=== PATIENT | male | born 1995 | race Caucasian/White ===

== ENCOUNTER 2021-01-25 10:21 | Outpatient (CLI) | payer MEDICAID ==
[2021-01-27 20:02] LABS: ANA SCREEN NEGATIVE (NEGATIVE)
== END 2021-01-25 10:22 | disposition home or self-care (01) ==
LOC: LAB 10:21
PROVIDERS: ATTEND Ophthalmology
DX: H20.00 Unspecified acute and subacute iridocyclitis (principal)
CPT/HCPCS: 36415; 81599; 82164; 83520; 85549; 86038; 86592; 86780; 86812

== ENCOUNTER 2022-05-03 19:17 | Emergency (ER) | payer MEDICAID ==
[2022-05-03 19:25] VITALS: BP 128/73
[2022-05-03] MEDS ORDERED: AMOX/CLAV 875 MG/125 MG TABLET PO STA (19:40)
[2022-05-03] MEDS ORDERED: TETANUS/DIPHTHERIA/PERTUSSIS 0.5 ML SYRINGE IM ONE (19:40)
--- NOTE | 2022-05-03 19:42 | ED Physician Documentation ---
PD HPI LOWER EXT INJURY - Stated complaint Stated Complaint: R THUMB LAC - Chief complaint Chief Complaint: Laceration - History obtained from History obtained from: Patient - Additional information Additional information: Right-handed gentleman was breaking up a fight between his 2 dogs and got bitten to the right thumb, an isolated injury. Tetanus status is unknown. Review of Systems Constitutional: reports: Reviewed and negative Nose: reports: Reviewed and negative Cardiac: reports: Reviewed and negative Respiratory: reports: Reviewed and negative PD PAST MEDICAL HISTORY - Present Medications Home Medications: Ambulatory Orders Medication Instructions Recorded Confirmed Amox/Clav 875/125 [Augmentin] 1 each PO Q12H #10 tablet 05/03/22 - Allergies Allergies/Adverse Reactions: Allergies Allergy/AdvReac Type Severity Reaction Status Date / Time No Known Drug Allergies Allergy Verified 05/03/22 19:25 PD ED PE NORMAL - Vitals Vital signs reviewed: Yes - General General: Alert and oriented X 3, No acute distress - Extremities Extremities: Other (He has 3 puncture wounds on the right thumb, one dorsally at the level of the interphalangeal joint on the ulnar side, 1 on the underside of the IP joints and 1 more on the tip of the tuft. No palpable foreign body. Flexion and extension strength the tip is normal. Mild tenderness around the IP j) - Neuro Neuro: Alert and oriented X 3, Normal speech Results - Vitals Vitals: Vital Signs - 24 hr 05/03/22 19:24 Temperature 36.4 C L Heart Rate 56 L Respiratory 16 Rate Blood Pressure 128/73 O2 Saturation 100 Oxygen O2 Source Room air - Rads (name of study) Three-view x-ray of the right thumb is without bony injury Radiology: EMP read contemporaneously PD MEDICAL DECISION MAKING - ED course ED course: Puncture wounds were irrigated. He is sent for an x-ray and tetanus is updated and he is started on Augmentin. Departure - Departure Disposition: 01 Home, Self Care Clinical Impression: Dog bite Qualifiers: Encounter type: initial encounter Qualified Code(s): W54.0XXA - Bitten by dog, initial encounter Condition: Good Record reviewed to determine appropriate education?: Yes Instructions: ED Bite Dog Prescriptions: Amox/Clav 875/125 [Augmentin] 1 each PO Q12H #10 tablet Comments: For wound care you can wash with soap and water and then just keep the puncture wounds covered with a Band-Aid. We are starting you on antibiotics, but you still need to keep an eye on it for signs of infection given the mechanism. Return for any signs of infection which would include increasing pain, swelling, drainage, or fever or spreading redness. Note for your records that you did receive a Tdap shot today. Discharge Date/Time: 05/03/22 21:00
--- NOTE | 2022-05-03 21:17 | XRAY Report ---
PROCEDURE: Finger(s) RT INDICATIONS: dog bite thumb TECHNIQUE: AP hand, 2 views of the first finger(s) acquired. COMPARISON: None. FINDINGS: Bones: No fractures or dislocations. No suspicious bony lesions. Soft tissues: No suspicious soft tissue calcifications. No radial opaque foreign body. No soft tiss ue gas. IMPRESSION: No acute osseous abnormalities. No radial opaque foreign body. No soft tissue gas. Reviewed by: Tammie Parker MD on 05/03/2022 9:15 PM PDT Approved by: Tammie Parker MD on 05/03/2022 9:15 PM PDT Station ID: [id number]
== END 2022-05-03 21:00 | disposition home or self-care (01) ==
LOC: ED 19:17
DX: S61.051A Open bite of right thumb without damage to nail, initial encounter (principal); W54.0XXA Bitten by dog, initial encounter; Y93.K9 Activity, other involving animal care
CPT/HCPCS: 73140; 90471; 90715; 99282; 99283; A9270